=== PATIENT | female | born 1960 | race Caucasian/White ===

== ENCOUNTER → 2016-10-21 | Outpatient (CLI) | payer OTHER | LOC: FIMAGING 10:19 | PROVIDERS: ATTEND Family Medicine | DX: Z12.31 Encounter for screening mammogram for malignant neoplasm of breast (principal) | CPT/HCPCS: G0202 ==

== ENCOUNTER → 2017-10-08 | Outpatient (CLI) | payer OTHER | LOC: BMCIMAGING 15:31 | PROVIDERS: ATTEND Podiatrist Foot & Ankle Surgery | DX: M79.89 Other specified soft tissue disorders (principal) ==

== ENCOUNTER → 2018-02-10 | Outpatient (CLI) | payer OTHER | LOC: BMCIMAGING 12:26 | PROVIDERS: ATTEND Family Medicine | DX: S92.421A Displaced fracture of distal phalanx of right great toe, initial encounter for closed fracture (principal) ==